=== PATIENT | male | born 1980 | race Caucasian/White ===

== ENCOUNTER 2019-06-30 06:38 | Day surgery (SDC) | payer OTHER ==
[2019-06-30 07:59] LABS: BASO % 0.9 % (0-2.0); EOS % 2.5 % (0-4.5); HEMATOCRIT 45.2 % (35.4-49); HEMOGLOBIN 14.9 GM/dl (11.7-16.9); LYMPH % 36.1 % (8-40); MCH 26.4 pg (25.7-33.7); MCHC 32.9 g/dl (32.0-35.9); MEAN CELL VOLUME 80.3 fl (80-96); MEAN PLT VOLUME 8.8 fl (7.5-11.1); MONO % 12.4 % (3.8-10.2); NEUT % 48.1 % (42.8-82.8); PLATELET COUNT 193 K/MM3 (134-434); RBC 5.63 M/mm3 (4.00-5.60); RDW 14.4 % (11.9-15.9); WHITE BLOOD COUNT 6.7 K/mm3 (4.0-10.8)
[2019-06-30 08:01] VITALS: TEMP 97.7
[2019-06-30 08:07] LABS: ALBUMIN 4.2 g/dl (3.4-5.0); BILIRUBIN,TOTAL 0.5 mg/dl (0.2-1); CALCIUM 9.1 mg/dl (8.5-10); CREATININE 1.2 mg/dl (0.55-1.3); TOT PROT 7.4 g/dl (6.4-8.2)
--- NOTE | 2019-06-30 08:15 | HP ---
CHIEF COMPLAINT: Major depressive disorder PCP: None Primary Psychiatrist: Baljit Mann HISTORY OF PRESENT ILLNESS: 38 year-old male with a PMH significant for testicular cancer s/p orchiectomy 2013 (no radiation, no chemo), and major depressive disorder. First underwent ECT around 2014. He presents today for ECT. Recent Events: * none reported PAST MEDICAL HISTORY: Testicular cancer PAST SURGICAL HISTORY: Orchiectomy 2014 Hernia repair Social History: lives in [place] with mother, father, sister; unemployed Smoking: never Alcohol: no Drugs: no Family history: non-contributory Allergies No Known Allergies Allergy (Verified 06/26/19 15:28) HOME MEDICATIONS: Home Medications Medication Instructions Recorded Olanzapine 20 mg PO HS 06/26/19 Sertraline HCl [Zoloft -] 25 mg PO DAILY 06/26/19 REVIEW OF SYSTEMS CONSTITUTIONAL: Absent: fever, chills, diaphoresis, generalized weakness, malaise, loss of appetite, weight change HEENT: Absent: rhinorrhea, nasal congestion, throat pain, throat swelling, difficulty swallowing, mouth swelling, ear pain, eye pain, visual changes CARDIOVASCULAR: Absent: chest pain, syncope, palpitations, irregular heart rate, lightheadedness , peripheral edema RESPIRATORY: Absent: cough, shortness of breath, dyspnea with exertion, orthopnea, wheezing, stridor, hemoptysis GASTROINTESTINAL: Absent: abdominal pain, abdominal distension, nausea, vomiting, diarrhea, constipation, melena, hematochezia GENITOURINARY: Absent: dysuria, frequency, urgency, hesitancy, hematuria, flank pain, genital pain MUSCULOSKELETAL: Absent: myalgia, arthralgia, joint swelling, back pain, neck pain SKIN: Absent: rash, itching, pallor HEMATOLOGIC/IMMUNOLOGIC: Absent: easy bleeding, easy bruising, lymphadenopathy, frequent infections ENDOCRINE: Absent: unexplained weight gain, unexplained weight loss, heat intolerance, cold intolerance NEUROLOGIC: Absent: headache, focal weakness or paresthesias, dizziness, unsteady gait, seizure, mental status changes, bladder or bowel incontinence PHYSICAL EXAMINATION Vital Signs - 24 hr 06/30/19 07:37 Temperature 97.7 F Pulse Rate 62 Respiratory 18 Rate Blood Pressure 130/85 O2 Sat by Pulse 98 Oximetry (%) GENERAL: Awake, alert, and fully oriented, in no acute distress. HEAD: Normal with no signs of trauma. EYES: Pupils equal, round and reactive to light, sclera anicteric, conjunctiva clear. LUNGS: Breath sounds equal, clear to auscultation bilaterally. No wheezes, and no crackles. No accessory muscle use. HEART: Regular rate and rhythm, normal S1 and S2 ABDOMEN: Soft, nontender, not distended MUSCULOSKELETAL: Normal range of motion at all joints. No bony deformities or tenderness. No CVA tenderness. UPPER EXTREMITIES: 2+ pulses, warm, well-perfused. No cyanosis. No clubbing. No peripheral edema. LOWER EXTREMITIES: 2+ pulses, warm, well-perfused. No calf tenderness. No peripheral edema. NEUROLOGICAL: Cranial nerves II-XII intact. Normal speech. Laboratory Results - last 24 hr 06/30/19 06/30/19 07:35 07:35 WBC 6.7 RBC 5.63 H Hgb 14.9 Hct 45.2 MCV 80.3 MCH 26.4 MCHC 32.9 RDW 14.4 Plt Count 193 MPV 8.8 Absolute Neuts (auto) 3.2 Neutrophils % 48.1 Lymphocytes % 36.1 Monocytes % 12.4 H Eosinophils % 2.5 Basophils % 0.9 Sodium 139 Potassium 4.0 Chloride 105 Carbon Dioxide 29 Anion Gap 5 L BUN 14.0 Creatinine 1.2 Est GFR (CKD-EPI)AfAm 89.00 Est GFR (CKD-EPI)NonAf 76.79 Random Glucose 99 Calcium 9.1 Magnesium 2.0 Total Bilirubin 0.5 AST 15 ALT 13 Alkaline Phosphatase 49 Total Protein 7.4 Albumin 4.2 ASSESSMENT/PLAN: 38 year-old male with a PMH significant for testicular cancer and major depressive disorder. Presents today for ECT. Cardiac --no cardiac history --Revised Cardiac Risk Index for Pre-Operative Risk: 0 points, 0.4% risk of major cardiac event Pulmonary --no pulmonary history Neurological --no neurological or neurosurgical history; no history of trauma Anesthesia --no reported problems with anesthesia ECT is a low risk procedure. The relative benefits of the planned procedure outweigh the relative risks for this patient at this time. Visit type - Emergency Visit Emergency Visit: No - New Patient This patient is new to me today: Yes Date on this admission: 06/30/19 - Critical Care Critical Care patient: No
[2019-06-30] MEDS ORDERED: KETAMINE HCL 500 MG/10 ML VIAL ONE (09:05)
[2019-06-30] MEDS ORDERED: ONDANSETRON 4 MG/2 ML VIAL IVPUSH PRN (09:53)
[2019-06-30] MEDS ORDERED: LACTATED RINGERS SOLUTION 1,000 ML IV SCH (10:00)
[2019-06-30 10:58] VITALS: BP 110/66; PULSE 72
--- NOTE | 2019-06-30 12:39 | EKG ---
Test Reason : Blood Pressure : / mmHG Vent. Rate : 060 BPM Atrial Rate : 060 BPM P-R Int : 140 ms QRS Dur : 100 ms QT Int : 418 ms P-R-T Axes : 067 074 049 degrees QTc Int : 418 ms NORMAL SINUS RHYTHM NORMAL ECG NO PREVIOUS ECGS AVAILABLE Confirmed by Thaddeus Hand MD ([id number]) on 06/30/2019 12:39:16 PM Referred By: Jace Qureshi Confirmed By:Thaddeus Hand MD
[2019-06-30 14:28] VITALS: BMI 24.8
== END 2019-06-30 10:50 | disposition home or self-care (01) ==
LOC: FECT 06:38
PROVIDERS: ATTEND Psychiatry & Neurology Psychiatry
PROC: GZB4ZZZ Other Electroconvulsive Therapy (ICD-10-PCS; principal; 2019-06-30 08:45)
DX: F25.9 Schizoaffective disorder, unspecified (principal)
CPT/HCPCS: 36415; 80053; 83735; 85025; 90870; 93005; 94760

== ENCOUNTER 2019-07-01 05:43 | Day surgery (SDC) | payer OTHER ==
[2019-07-01 06:53] VITALS: BMI 24.8
[2019-07-01] MEDS ORDERED: KETAMINE HCL 500 MG/10 ML VIAL ONE (07:13)
[2019-07-01] MEDS ORDERED: LACTATED RINGERS SOLUTION 1,000 ML IV SCH (07:45)
[2019-07-01 08:24] VITALS: TEMP 98.9
[2019-07-01 08:58] VITALS: BP 124/72; PULSE 74
== END 2019-07-01 09:00 | disposition home or self-care (01) ==
LOC: FECT 05:43
PROVIDERS: ATTEND Psychiatry & Neurology Psychiatry
PROC: GZB4ZZZ Other Electroconvulsive Therapy (ICD-10-PCS; principal; 2019-07-01 07:30)
DX: F25.9 Schizoaffective disorder, unspecified (principal)
CPT/HCPCS: 90870; 94760

== ENCOUNTER 2019-07-03 05:47 | Day surgery (SDC) | payer OTHER ==
[2019-07-03 07:10] VITALS: BMI 24.8
[2019-07-03] MEDS ORDERED: KETAMINE HCL 500 MG/10 ML VIAL ONE (07:31)
[2019-07-03 08:48] VITALS: TEMP 98.9
[2019-07-03 09:15] VITALS: BP 124/82; PULSE 64
== END 2019-07-03 09:29 | disposition home or self-care (01) ==
LOC: FECT 05:47
PROVIDERS: ATTEND Psychiatry & Neurology Psychiatry
PROC: GZB4ZZZ Other Electroconvulsive Therapy (ICD-10-PCS; principal; 2019-07-03 07:15)
DX: F25.9 Schizoaffective disorder, unspecified (principal)
CPT/HCPCS: 90870; 94760

== ENCOUNTER 2019-07-06 05:44 | Day surgery (SDC) | payer OTHER ==
[2019-07-06 06:39] VITALS: BMI 24.7
[2019-07-06] MEDS ORDERED: KETAMINE HCL 500 MG/10 ML VIAL ONE (06:58)
[2019-07-06] MEDS ORDERED: LACTATED RINGERS SOLUTION 1,000 ML IV SCH (07:00)
[2019-07-06 08:24] VITALS: TEMP 97.8
[2019-07-06 08:46] VITALS: BP 116/76; PULSE 68
== END 2019-07-06 08:48 | disposition home or self-care (01) ==
LOC: FECT 05:44
PROVIDERS: ATTEND Psychiatry & Neurology Psychiatry
PROC: GZB4ZZZ Other Electroconvulsive Therapy (ICD-10-PCS; principal; 2019-07-06 07:15)
DX: F25.9 Schizoaffective disorder, unspecified (principal); Z85.47 Personal history of malignant neoplasm of testis
CPT/HCPCS: 90870; 94760

== ENCOUNTER 2019-07-08 05:45 | Day surgery (SDC) | payer OTHER ==
[2019-07-08 06:22] VITALS: BMI 24.7
[2019-07-08] MEDS ORDERED: ONDANSETRON 4 MG/2 ML VIAL IVPUSH PRN (06:54)
[2019-07-08] MEDS ORDERED: ACETAMINOPHEN 325 MG TABLET (FP) PO PRN (06:54)
[2019-07-08] MEDS ORDERED: oxyCODONE HCL 5 MG TABLET PO PRN (06:54)
[2019-07-08] MEDS ORDERED: KETAMINE HCL 500 MG/10 ML VIAL ONE (07:02)
[2019-07-08 08:26] VITALS: TEMP 97.7
[2019-07-08 08:49] VITALS: BP 130/80; PULSE 64
== END 2019-07-08 08:53 | disposition home or self-care (01) ==
LOC: FECT 05:45
PROVIDERS: ATTEND Psychiatry & Neurology Psychiatry
PROC: GZB4ZZZ Other Electroconvulsive Therapy (ICD-10-PCS; principal; 2019-07-08 07:00)
DX: F25.9 Schizoaffective disorder, unspecified (principal)
CPT/HCPCS: 90870; 94760

== ENCOUNTER 2019-07-10 05:42 | Day surgery (SDC) | payer OTHER ==
[2019-07-10 06:37] VITALS: BMI 25.0
[2019-07-10] MEDS ORDERED: KETAMINE HCL 500 MG/10 ML VIAL ONE (06:49)
[2019-07-10 07:18] VITALS: TEMP 98.2
[2019-07-10] MEDS ORDERED: ACETAMINOPHEN 500 MG TABLET (FP) PO PRN (07:59)
[2019-07-10] MEDS ORDERED: PROMETHAZINE HCL 25 MG/1 ML VIAL IVPUSH PRN (07:59)
[2019-07-10] MEDS ORDERED: LACTATED RINGERS SOLUTION 1,000 ML IV SCH (08:00)
[2019-07-10 08:21] VITALS: BP 121/72; PULSE 69
== END 2019-07-10 08:20 | disposition home or self-care (01) ==
LOC: FECT 05:42
PROVIDERS: ATTEND Psychiatry & Neurology Psychiatry
PROC: GZB4ZZZ Other Electroconvulsive Therapy (ICD-10-PCS; principal; 2019-07-10 07:00)
DX: F25.9 Schizoaffective disorder, unspecified (principal)
CPT/HCPCS: 90870; 94760

== ENCOUNTER 2019-07-13 05:40 | Day surgery (SDC) | payer OTHER | END 2019-07-13 08:20 | disposition home or self-care (01) | LOC: FECT 05:40 ==

== ENCOUNTER 2019-07-15 05:42 | Day surgery (SDC) | payer OTHER ==
[2019-07-15 06:19] VITALS: TEMP 98; BMI 24.7
[2019-07-15] MEDS ORDERED: KETAMINE HCL 500 MG/10 ML VIAL ONE (06:54)
[2019-07-15] MEDS ORDERED: oxyCODONE HCL 5 MG TABLET PO PRN (07:00)
[2019-07-15] MEDS ORDERED: ACETAMINOPHEN 325 MG TABLET (FP) PO PRN (07:00)
[2019-07-15] MEDS ORDERED: ONDANSETRON 4 MG/2 ML VIAL IVPUSH PRN (07:00)
[2019-07-15 08:20] VITALS: BP 130/78; PULSE 72
== END 2019-07-15 08:15 | disposition home or self-care (01) ==
LOC: FECT 05:42
PROVIDERS: ATTEND Psychiatry & Neurology Psychiatry
PROC: GZB4ZZZ Other Electroconvulsive Therapy (ICD-10-PCS; principal; 2019-07-15 07:15)
DX: F25.9 Schizoaffective disorder, unspecified (principal)
CPT/HCPCS: 90870; 94760

== ENCOUNTER 2019-07-17 05:50 | Day surgery (SDC) | payer OTHER ==
[2019-07-17 06:36] VITALS: BMI 24.4
[2019-07-17] MEDS ORDERED: KETAMINE HCL 500 MG/10 ML VIAL ONE (07:22)
[2019-07-17] MEDS ORDERED: LACTATED RINGERS SOLUTION 1,000 ML IV SCH (07:30)
[2019-07-17 08:36] VITALS: TEMP 97.8
[2019-07-17 09:01] VITALS: BP 125/75
[2019-07-17 09:03] VITALS: PULSE 78
== END 2019-07-17 09:00 | disposition home or self-care (01) ==
LOC: FECT 05:50
PROVIDERS: ATTEND Psychiatry & Neurology Psychiatry
PROC: GZB4ZZZ Other Electroconvulsive Therapy (ICD-10-PCS; principal; 2019-07-17 07:15)
DX: F25.9 Schizoaffective disorder, unspecified (principal)
CPT/HCPCS: 90870; 94760

== ENCOUNTER 2019-07-22 05:43 | Day surgery (SDC) | payer OTHER ==
[2019-07-22 06:43] VITALS: BMI 24.5
[2019-07-22] MEDS ORDERED: KETAMINE HCL 500 MG/10 ML VIAL ONE (07:11)
[2019-07-22 08:25] VITALS: TEMP 97.6
[2019-07-22 08:43] VITALS: BP 119/72; PULSE 72
== END 2019-07-22 08:44 | disposition home or self-care (01) ==
LOC: FECT 05:43
PROVIDERS: ATTEND Psychiatry & Neurology Psychiatry
PROC: GZB4ZZZ Other Electroconvulsive Therapy (ICD-10-PCS; principal; 2019-07-22 07:00)
DX: F25.9 Schizoaffective disorder, unspecified (principal)
CPT/HCPCS: 90870; 94760

== ENCOUNTER 2019-07-24 05:37 | Day surgery (SDC) | payer OTHER ==
[2019-07-24 06:33] VITALS: BMI 24.5
[2019-07-24] MEDS ORDERED: KETAMINE HCL 500 MG/10 ML VIAL ONE (06:56)
[2019-07-24 07:56] VITALS: TEMP 97.9
[2019-07-24 08:22] VITALS: BP 128/82; PULSE 60
[2019-07-24] MEDS ORDERED: ONDANSETRON 4 MG/2 ML VIAL IVPUSH PRN (08:22)
[2019-07-24] MEDS ORDERED: LACTATED RINGERS SOLUTION 1,000 ML IV SCH (08:30)
== END 2019-07-24 08:25 | disposition home or self-care (01) ==
LOC: FECT 05:37
PROVIDERS: ATTEND Psychiatry & Neurology Psychiatry
PROC: GZB4ZZZ Other Electroconvulsive Therapy (ICD-10-PCS; principal; 2019-07-24 07:00)
DX: F25.8 Other schizoaffective disorders (principal)
CPT/HCPCS: 90870; 94760